=== PATIENT | female | born 1970 | race Caucasian/White ===

== ENCOUNTER 2016-11-17 08:57 | Emergency (ER) | payer OTHER ==
[~2016-11-17] VITALS: Ht 170.2 cm; Wt 103.1 kg
[~2016-11-17 08:57] MED LIST: BIOTIN1000 MICRO PO; CLARITIN-D 21 TABLET PO; IBUPROFEN200 M1 PO; WOMEN'S DAILY1 EAC1 PO
[2016-11-17 09:57] LABS: HEMATOCRIT 47.4 % (36.0-46.0); MCH 29.4 PG (29.0-34.0); MCHC 34.6 G/DL (30.0-36.0); MCV 85.1 FL (83-99); MEAN PLAT.VOLUME 8.6 uM^3 (9.5-12.4); PLATELET COUNT 359 K/uL (156-360); RBC DIS.WIDTH-CV 12.3 % (11.8-14.6); RBC DIS.WIDTH-SD 38.2 % (39-53); RED BLOOD COUNT 5.57 M/uL (3.80-5.20); WHITE BLOOD COUNT 11.3 K/uL (4.1-10.2)
[2016-11-17 10:08] LABS: CHLORIDE 105 mEq/L (99-109); POTASSIUM 3.7 mEq/L (3.7-5.4); SODIUM 139 mEq/L (136-147)
[2016-11-17 10:11] LABS: GLUCOSE 132 mg/dL (70-99)
[2016-11-17 10:12] LABS: ANION GAP 15 MEQ/L (2-14)
[2016-11-17 10:14] LABS: ALKALINE PHOSPHATASE 64 IU/L (3-129); GFR ESTIMATE (CALCULATED) > 59 mL/min/
[2016-11-17 10:16] LABS: UREA NITROGEN (BUN) 12 mg/dL (9-23)
[2016-11-17 10:18] LABS: LIPASE 11 U/L (1.0-51.0)
[2016-11-17 10:28] LABS: QUANTITATIVE HCG < 4.0 MIU/ML
[2016-11-17 11:55] LABS: ADD MIUA? YES; BILIRUBIN NEGATIVE; BLOOD SMALL; COLOR YELLOW ((YELLOW)); GLUCOSE (STRIP) NEGATIVE; KETONES 20; LEUKOCYTES NEGATIVE; NITRITE NEGATIVE; PROTEIN (STRIP) 30; UROBILINOGEN 0.2 MG/DL (0.2-1.0)
[2016-11-17] MEDS ORDERED: BENTYL20 MG PO (12:16)
[2016-11-17] MEDS ORDERED: ZOFRAN ODT4 MG PO (12:16)
[2016-11-17 12:20] LABS: BACTERIA RARE /HPF; EPITHELIAL CELLS 1+ /HPF; MUCUS TRACE /LPF; WHITE BLOOD CELLS 0-5 /HPF (0-5)
[2016-11-17 12:56] VITALS: BP 158/86
== END 2016-11-17 12:50 | disposition home or self-care (01) ==
LOC: EME 08:57
PROVIDERS: Nurse Practitioner Family
DX: R10.13 Epigastric pain (principal); R10.11 Right upper quadrant pain; R11.2 Nausea with vomiting, unspecified; I10 Essential (primary) hypertension; R00.0 Tachycardia, unspecified; E86.0 Dehydration; D72.829 Elevated white blood cell count, unspecified; Z72.0 Tobacco use
CPT/HCPCS: 74177; 80053; 81003; 83690; 84702; 85027; 93005; 99281; 99285; J1885; J2405; J3010; J7040

== ENCOUNTER 2017-11-19 14:01 | Inpatient (IN) | payer OTHER ==
[~2017-11-19] VITALS: Ht 170.2 cm; Wt 96.4 kg
[~2017-11-19 14:01] MED LIST changes: +BENTYL20 MG PO; +ZOFRAN ODT4 MG PO
[2017-11-19 14:24] LABS: HEMATOCRIT 31.3 % (36.0-46.0); HEMOGLOBIN 10.7 G/DL (11.9-15.5); MCH 30.7 PG (29.0-34.0); MCHC 34.2 G/DL (30.0-36.0); MCV 89.9 FL (83-99); PLATELET COUNT 230 K/uL (156-360); RBC DIS.WIDTH-CV 12.2 % (11.8-14.6); RBC DIS.WIDTH-SD 39.4 % (39-53); RED BLOOD COUNT 3.48 M/uL (3.80-5.20); WHITE BLOOD COUNT 7.2 K/uL (4.1-10.2)
[2017-11-19 14:30] LABS: INTER. NORMALIZED RATIO 1.2
[2017-11-19 14:33] LABS: PTT 24.7 SEC (25-37)
[2017-11-19 14:38] LABS: CHLORIDE 106 mEq/L (99-109); POTASSIUM 3.4 mEq/L (3.7-5.4); SODIUM 136 mEq/L (136-147)
[2017-11-19 14:40] LABS: GLUCOSE 190 mg/dL (70-99)
[2017-11-19 14:43] LABS: SERUM ETHYL ALCOHOL < 10 mg/dL
[2017-11-19 14:44] LABS: CREATININE 0.7 mg/dL (0.6-1.3); GFR ESTIMATE (CALCULATED) > 59 mL/min/
[2017-11-19 14:46] LABS: UREA NITROGEN (BUN) 7 mg/dL (9-23)
[2017-11-19 14:47] LABS: ACETAMINOPHEN (TYLENOL) < 10 mcg/mL (10-30); SALICYLATE < 5.0 MG/DL (15-30)
[2017-11-19 14:54] LABS: DIGOXIN < 0.3 ng/mL (0.8-2.0)
[2017-11-19 15:10] LABS: TROP-I INTERPRETATION NEGATIVE; TROPONIN-I < 0.01 ng/mL (0.0-0.30)
[2017-11-19] MEDS ORDERED: BUSPAR5 MG PO (15:46)
[2017-11-19] MEDS ORDERED: ROSUVASTATIN CA10 MG PO (15:46)
[2017-11-19] MEDS ORDERED: VENLAFAXINE HC150 M1 PO (15:47)
[2017-11-19] MEDS ORDERED: OMEPRAZOLE40 M1 PO (15:47)
[2017-11-19 16:06] LABS: AMPHETAMINE NEGATIVE (500 ng/mL); BENZODIAZEPINES NEGATIVE (150 ng/mL); COCAINE NEGATIVE (150 ng/mL); METHAMPHETAMINE NEGATIVE (500 ng/mL); OPIATES (MORPHINE) NEGATIVE (100 ng/mL); PHENCYCLIDINE NEGATIVE (25 ng/mL); THC CANNABINOIDS PRESUMPTIVE POSITIVE (50 ng/mL); TRICYCLIC ANTIDEPRESSANTS PRESUMPTIVE POSITIVE (300 ng/mL)
[2017-11-19 16:07] LABS: BARBITURATES NEGATIVE (200 ng/mL); BUPRENORPHINE NEGATIVE (10 ng/mL); METHADONE NEGATIVE (200 ng/mL); OXYCODONE NEGATIVE (100 ng/mL); PROPOXYPHENE NEGATIVE (300 ng/mL)
[2017-11-19 16:44] LABS: BASE EXCESS -8.2 mEq/L (-3 to +3); BICARBONATE 18.9 mEq/L (22-26); CARBOXY HGB 1.6 % (0-5); METHEMOGLOBIN 1.2 % (0-1.5); PCO2 44 mm Hg (35-45); PO2 84 mm Hg (80-100); SITE FEM ALINE
[2017-11-19 16:45] LABS: DEVICE VENT; FI02 60 %; MECHANICAL RATE 16 resp/min; MODE ACVC; PEEP 5 CM/H20; TIDAL VOLUME 450 ML; TOTAL RESP RATE 16 resp/min; pH 7.24 (7.35-7.45)
[2017-11-19 17:05] VITALS: BP 146/78
[2017-11-19 17:06] VITALS: BP 146/75
[2017-11-19 17:15] VITALS: BP 108/61
[2017-11-19 17:30] VITALS: BP 98/49
[2017-11-20] VITALS (8 sets, daily range): BP systolic 105–139; BP diastolic 65–87
[2017-11-20 05:55] LABS: ALBUMIN 3.3 G/DL (3.2-4.8); ALKALINE PHOSPHATASE 45 IU/L (3-129); ALT (GPT) 21 IU/L (3-49); AST (GOT) 15 IU/L (2-34); CHLORIDE 109 MEQ/L (99-109); CREATININE 0.6 MG/DL (0.6-1.3); GFR ESTIMATE (CALCULATED) > 59 mL/min/; POTASSIUM 3.6 MEQ/L (3.7-5.4); SODIUM 138 MEQ/L (136-147); TOTAL BILIRUBIN 0.6 MG/DL (0.0-1.0); TOTAL PROTEIN 5.5 G/DL (6.4-8.3); UREA NITROGEN (BUN) 5 mg/dL (9-23)
[2017-11-20 05:56] LABS: GLUCOSE 116 mg/dL (70-99)
[2017-11-21] VITALS (8 sets, daily range): BP systolic 91–109; BP diastolic 59–71
[2017-11-22 06:16] LABS: CHLORIDE 106 MEQ/L (99-109); CREATININE 0.6 MG/DL (0.6-1.3); GFR ESTIMATE (CALCULATED) > 59 mL/min/; GLUCOSE 103 mg/dL (70-99); SODIUM 142 MEQ/L (136-147); UREA NITROGEN (BUN) 9 mg/dL (9-23)
[2017-11-22 08:01] VITALS: BP 129/88
[2017-11-22 11:34] VITALS: BP 154/93
[2017-11-22 12:00] VITALS: BP 145/68
[2017-11-22 19:38] VITALS: BP 166/83
[2017-11-22 22:01] VITALS: BP 136/75
[2017-11-22 23:08] VITALS: BP 136/67
[2017-11-23 07:55] VITALS: BP 121/77
[2017-11-23 16:04] VITALS: BP 193/92
[2017-11-23 21:30] VITALS: BP 144/80
[2017-11-23 23:05] VITALS: BP 130/80
[2017-11-24 06:52] VITALS: BP 126/78
== END 2017-11-24 12:30 | DRG 917 ==
LOC: EME 14:01 → 5EAST 15:47 → 4WEST 15:47 → EDOF 15:47 → ENRESERV 15:48 → 4WEST 17:01 → ENRESERV 11-22 17:05 → 5EAST 11-22 21:15
PROVIDERS: Emergency Medicine; Internal Medicine Critical Care Medicine
DX: T43.592A Poisoning by other antipsychotics and neuroleptics, intentional self-harm, initial encounter (principal); T43.012A Poisoning by tricyclic antidepressants, intentional self-harm, initial encounter; R40.20 Unspecified coma; J96.01 Acute respiratory failure with hypoxia; R57.9 Shock, unspecified; R00.0 Tachycardia, unspecified; E87.2 Acidosis; E87.6 Hypokalemia; F31.4 Bipolar disorder, current episode depressed, severe, without psychotic features; F41.9 Anxiety disorder, unspecified; E78.5 Hyperlipidemia, unspecified; F17.200 Nicotine dependence, unspecified, uncomplicated; E66.9 Obesity, unspecified; Z68.34 Body mass index [BMI] 34.0-34.9, adult
CPT/HCPCS: 36600; 70450; 71045; 80048; 80053; 80162; 82803; 83605; 84484; 84999; 85027; 85610; 85730; 87070; 87205; 87641; 93005; 94002; 94003; 94799; 99281; 99285; C1751; G0480; J1650; J2250; J3480; J7030; J7040; J7050; J7070; S0028

== ENCOUNTER 2017-11-24 10:14 | Inpatient (IN) | payer OTHER ==
[~2017-11-24] VITALS: Ht 170.2 cm; Wt 96.4 kg
[~2017-11-24 10:14] MED LIST changes: +BUSPAR5 MG PO; +OMEPRAZOLE40 M1 PO; +ROSUVASTATIN CA10 MG PO; +VENLAFAXINE HC150 M1 PO
[2017-11-24 12:48] VITALS: BP 182/82
[2017-11-24 12:55] VITALS: BP 182/82
[2017-11-24 15:25] VITALS: BP 130/62
[2017-11-25 07:48] VITALS: BP 134/75
[2017-11-25 15:57] VITALS: BP 134/70
[2017-11-26 08:12] VITALS: BP 143/65
[2017-11-26 11:53] VITALS: BP 143/78
[2017-11-26 16:21] VITALS: BP 151/72
[2017-11-27 07:55] VITALS: BP 121/61
[2017-11-27] MEDS ORDERED: DIVALPROEX SOD500 M1 PO (08:18)
== END 2017-11-27 10:50 | disposition home or self-care (01) | DRG 917 ==
LOC: 1WEST 10:14
DX: T43.592A Poisoning by other antipsychotics and neuroleptics, intentional self-harm, initial encounter (principal); J96.90 Respiratory failure, unspecified, unspecified whether with hypoxia or hypercapnia; E87.2 Acidosis; F31.4 Bipolar disorder, current episode depressed, severe, without psychotic features; F41.9 Anxiety disorder, unspecified
CPT/HCPCS: 80164; 97150 GO; 97165 GO